=== PATIENT | female | born 1980 | race African-American/Black ===

== ENCOUNTER → 2016-12-16 | Outpatient (CLI) | payer MEDICAID, BC ==
[~2016-12-16] MED LIST: FER325T PO; LISI2.5T47 PO; PRED-188 PO; Pantoprazole Sodium Sesquihydr PO
[2016-12-16 12:54] LABS: Basophils # (auto) 0 uL; Basophils % (auto) 0.5 % (0.0-2.0); DEFINITIVE VIEW TRANSMISSION; Eosinophils # (auto) 0 uL; Eosinophils % (auto) 0.1 % (0.0-7.0); Hematocrit 33.5 % (36.0-46.0); Hemoglobin 10.5 g/dL (12.2-16.2); Lymphocytes # (auto) 1.3 uL; Lymphocytes % (auto) 28.6 % (10.0-50.0); Mean Corpuscular Hgb Conc. 31.3 g/dL (32.0-36.0); Monocytes # (auto) 0.4 uL; Monocytes % (auto) 7.8 % (0.0-12.0); Neutrophils # (auto) 2.9 uL; Platelet Count (auto) 483 10^3/uL (140-450); White Blood Cell 4.6 10^3/uL (4.4-10.8)
[2016-12-16 13:22] LABS: Albumin 3.7 g/dL (3.4-5.0); BUN/Creatinine Ratio 11.6; Bilirubin, Total 0.4 mg/dL (0.2-1.0); Potassium 3.1 mmol/L (3.5-5.1); Total Protein 8.8 g/dL (6.4-8.2)
== END | disposition home or self-care (01) ==
LOC: LAB 11:53
DX: M06.9 Rheumatoid arthritis, unspecified (principal); D64.9 Anemia, unspecified; M25.50 Pain in unspecified joint; I10 Essential (primary) hypertension; Z79.899 Other long term (current) drug therapy
CPT/HCPCS: 36415; 80053; 85025; 85049; 85652; 86141

== ENCOUNTER 2018-10-03 12:47 | Inpatient (IN) | payer BC, MEDICAID ==
[~2018-10-03] VITALS: Ht 177.8 cm; Wt 71.6 kg
[2018-10-03] MEDS ORDERED: ACETAMINOPHEN 325 MG TAB PO ONE (13:15)
[2018-10-03 14:00] LABS: Urine Bacteria FEW /hpf (None Seen); Urine Blood 1+ /uL (Negative); Urine Mucus FEW (None Seen); Urine Specific Gravity 1.023 (1.001-1.035); Urine WBC 20 /hpf (0 - 5)
[2018-10-03 14:24] LABS: Hematocrit 31.2 % (36.0-46.0)
[2018-10-03 14:27] LABS: Hemoglobin 9.3 g/dL (12.2-16.2); Mean Corpuscular Hemoglobin 22.5 pg (28.0-32.0); Mean Corpuscular Hgb Conc. 29.9 g/dL (32.0-36.0); Mean Corpuscular Volume 75.4 fL (80.0-100.0); Platelet Count (auto) 280 10^3/uL (140-450); Red Blood Cells 4.14 10^6/uL (4.0-5.20); Red Cell Distribution Width 19.9 % (11.8-14.3); White Blood Cell 6.5 10^3/uL (4.4-10.8)
[2018-10-03 14:34] LABS: Band Neutrophils % (manual) 0; Basophils % (manual) 0 (0.0-2.0); Blast Cells 0; Eosinophils % (manual) 0 (0-7); Metamyelocytes % 0; Myelocytes % 0; Promyelocytes % 0; Reactive Lymphocytes 0
[2018-10-03 14:38] LABS: Calcium 7.8 mg/dL (8.5-10.1)
[2018-10-03 14:42] LABS: BUN/Creatinine Ratio 5.8; Bilirubin, Total 0.6 mg/dL (0.2-1.0); Total Protein 7.4 g/dL (6.4-8.2)
[2018-10-03 14:56] LABS: Potassium 2.6 mmol/L (3.5-5.1)
[2018-10-03 15:44] LABS: Lymphocytes % (manual) 50 (10.0-50.0); Monocytes % (manual) 4 (0-12)
[2018-10-03] MEDS ORDERED: SODIUM CHLORIDE 0.9% 1,000 ML IV ONE (16:09)
[2018-10-03] MEDS ORDERED: POTASSIUM CHL 20 Meq TABLET PO ONE (16:15)
[2018-10-03] MEDS ORDERED: POTASSIUM CHL 20MEQ/100ML 100 ML IV ONE (16:15)
[2018-10-03] MEDS ORDERED: cefTRIAXone 1GM/50ML D5W 50 ML IV ONE (16:30)
[2018-10-03] MEDS ORDERED: HYDROcodone-ACET 5/325MG TAB PO PRN (17:15)
[2018-10-03] MEDS ORDERED: NITROGLYCERIN 0.4 MG SL TAB SL PRN (17:15)
[2018-10-03] MEDS ORDERED: DOCUSATE SOD 100 MG CAP PO PRN (17:15)
[2018-10-03] MEDS ORDERED: MORPHINE SULFATE 4 MG/ML SYR/VIAL IV PRN ×2 (17:15)
[2018-10-03] MEDS ORDERED: ACETAMINOPHEN 325 MG TAB PO PRN (17:15)
[2018-10-03] MEDS ORDERED: TEMAZEPAM 15 MG CAP PO PRN (17:15)
[2018-10-03] MEDS: Ensure Enlive Strawberry 8oz Bottle PO SCH (18:00)
[2018-10-03] MEDS ORDERED: METH2.5T3 PO (18:46)
[2018-10-03 18:48] VITALS: BP 102/72
[2018-10-03 21:37] VITALS: BP 119/74
[2018-10-03] MEDS: SODIUM CHLOR 0.9% PF (SALINE LOCK) 10ML VIAL/SYR IV SCH (22:00)
[2018-10-03 23:09] LABS: BUN/Creatinine Ratio 7.1; Potassium 3.1 mmol/L (3.5-5.1)
[2018-10-03] MEDS: FAMOTIDINE 20 MG TAB PO SCH (23:25)
[2018-10-04 04:56] VITALS: BP 118/72
[2018-10-04 05:55] LABS: Hemoglobin 8.4 g/dL (12.2-16.2); White Blood Cell 5.8 10^3/uL (4.4-10.8)
[2018-10-04 05:57] LABS: Hematocrit 27.5 % (36.0-46.0); Mean Corpuscular Hgb Conc. 30.5 g/dL (32.0-36.0); Mean Corpuscular Volume 75.4 fL (80.0-100.0); Platelet Count (auto) 292 10^3/uL (140-450); Red Blood Cells 3.64 10^6/uL (4.0-5.20)
[2018-10-04] MEDS: SODIUM CHLOR 0.9% PF (SALINE LOCK) 10ML VIAL/SYR IV SCH ×3 (06:00→22:00)
[2018-10-04 06:04] LABS: Potassium 3.1 mmol/L (3.5-5.1)
[2018-10-04 06:10] LABS: Albumin 2.6 g/dL (3.4-5.0); BUN/Creatinine Ratio 4.8; Calcium 7.3 mg/dL (8.5-10.1)
[2018-10-04 06:12] LABS: Bilirubin, Total 0.4 mg/dL (0.2-1.0); Total Protein 6.3 g/dL (6.4-8.2)
[2018-10-04 06:23] LABS: Red Cell Distribution Width 20.8 % (11.8-14.3)
[2018-10-04 06:25] LABS: Basophils % (manual) 0 (0.0-2.0); Blast Cells 0; Eosinophils % (manual) 0 (0-7); Metamyelocytes % 0; Myelocytes % 0; Promyelocytes % 0
[2018-10-04 08:47] VITALS: BP 113/73
[2018-10-04] MEDS: Ensure Enlive Strawberry 8oz Bottle PO SCH ×3 (09:05→18:22)
[2018-10-04 09:25] LABS: Band Neutrophils % (manual) 1; Lymphocytes % (manual) 42 (10.0-50.0); Monocytes % (manual) 8 (0-12); Reactive Lymphocytes 3
[2018-10-04] MEDS: cefTRIAXone 1GM/50ML D5W 50 ML IV SCH (10:41)
[2018-10-04] MEDS: MULTIPLE VITAMIN TAB PO SCH (10:42)
[2018-10-04] MEDS: FAMOTIDINE 20 MG TAB PO SCH ×2 (10:42→22:00)
[2018-10-04] MEDS ORDERED: THROAT LOZENGES(CEPASTAT) MT PRN (13:00)
[2018-10-04] MEDS ORDERED: POTASSIUM EFFERVESENT TAB 25 MEQ PO ONE (13:00)
[2018-10-04 13:10] VITALS: BP 118/76
[2018-10-04] MEDS: ACETAMINOPHEN 325 MG TAB PO PRN ×2 (14:34→22:03)
[2018-10-04 16:47] VITALS: BP 116/73
[2018-10-04 21:52] VITALS: BP 120/76
[2018-10-05 05:00] VITALS: BP 113/70
[2018-10-05] MEDS: SODIUM CHLOR 0.9% PF (SALINE LOCK) 10ML VIAL/SYR IV SCH ×3 (06:10→21:43)
[2018-10-05 06:32] LABS: Eosinophils # (auto) 0 uL
[2018-10-05 06:35] LABS: Basophils # (auto) 0.1 uL; Basophils % (auto) 1.2 % (0.0-2.0); Eosinophils % (auto) 0.1 % (0.0-7.0); Hematocrit 29.9 % (36.0-46.0); Lymphocytes # (auto) 2.6 uL; Mean Corpuscular Hemoglobin 22.9 pg (28.0-32.0); Mean Corpuscular Hgb Conc. 30.1 g/dL (32.0-36.0); Mean Corpuscular Volume 76.1 fL (80.0-100.0); Monocytes # (auto) 0.5 uL; Monocytes % (auto) 8.5 % (0.0-12.0); Neutrophils # (auto) 2.6 uL; Neutrophils % (auto) 44.4 % (37.0-80.0); Platelet Count (auto) 340 10^3/uL (140-450); Red Blood Cells 3.93 10^6/uL (4.0-5.20); White Blood Cell 5.8 10^3/uL (4.4-10.8)
[2018-10-05 06:36] LABS: Red Cell Distribution Width 21.1 % (11.8-14.3)
[2018-10-05 06:51] LABS: Potassium 3.4 mmol/L (3.5-5.1)
[2018-10-05 06:55] LABS: BUN/Creatinine Ratio 6.8; Calcium 7.9 mg/dL (8.5-10.1)
[2018-10-05 08:00] VITALS: BP 127/77
[2018-10-05 08:05] LABS: Lymphocytes % (auto) 45.8 % (10.0-50.0); Nucleated Red Blood Cells % 0.3 %
[2018-10-05 09:00] VITALS: BP 127/77
[2018-10-05] MEDS: Ensure Enlive Strawberry 8oz Bottle PO SCH ×3 (09:46→18:16)
[2018-10-05] MEDS: cefTRIAXone 1GM/50ML D5W 50 ML IV SCH (09:46)
[2018-10-05] MEDS: FAMOTIDINE 20 MG TAB PO SCH ×2 (09:47→21:42)
[2018-10-05] MEDS: MULTIPLE VITAMIN TAB PO SCH (09:47)
[2018-10-05 13:00] VITALS: BP 119/77
[2018-10-05] MEDS ORDERED: POTASSIUM EFFERVESENT TAB 25 MEQ PO ONE (13:45)
[2018-10-05] MEDS ORDERED: PANTOPRAZOLE 40 MG TAB PO ONE (14:00)
[2018-10-05] MEDS: metroNIDAZOLE 500MG/100ML 100 ML IV SCH ×2 (14:37→21:43)
[2018-10-05] MEDS: SUCRALFATE 1 GM TAB PO SCH ×2 (14:37→21:43)
[2018-10-05 17:00] VITALS: BP 106/68
[2018-10-05] MEDS: ONDANSETRON HCL 4 MG/2 ML VIAL IV PRN (17:28)
[2018-10-05] MEDS: ACETAMINOPHEN 325 MG TAB PO PRN (17:29)
[2018-10-05 21:59] VITALS: BP 98/65
[2018-10-06] MEDS: ACETAMINOPHEN 325 MG TAB PO PRN ×3 (04:19→16:45)
[2018-10-06 04:56] VITALS: BP 107/72
[2018-10-06 05:16] LABS: Basophils # (auto) 0 uL; Basophils % (auto) 0.5 % (0.0-2.0); Eosinophils # (auto) 0 uL; Eosinophils % (auto) 0.1 % (0.0-7.0); Hemoglobin 8.5 g/dL (12.2-16.2)
[2018-10-06 05:20] LABS: Hematocrit 27.9 % (36.0-46.0); Lymphocytes # (auto) 4.1 uL; Mean Corpuscular Hemoglobin 23.1 pg (28.0-32.0); Mean Corpuscular Hgb Conc. 30.5 g/dL (32.0-36.0); Mean Corpuscular Volume 75.7 fL (80.0-100.0); Monocytes # (auto) 0.7 uL; Monocytes % (auto) 9.3 % (0.0-12.0); Neutrophils # (auto) 2.3 uL; Neutrophils % (auto) 32.6 % (37.0-80.0); Nucleated Red Blood Cells % 0.3 %; Platelet Count (auto) 323 10^3/uL (140-450); Red Blood Cells 3.68 10^6/uL (4.0-5.20); White Blood Cell 7.1 10^3/uL (4.4-10.8)
[2018-10-06 05:29] LABS: Lymphocytes % (auto) 57.5 % (10.0-50.0); Red Cell Distribution Width 21.4 % (11.8-14.3)
[2018-10-06 05:30] LABS: Potassium 3.4 mmol/L (3.5-5.1)
[2018-10-06 05:34] LABS: BUN/Creatinine Ratio 7.6; Calcium 7.5 mg/dL (8.5-10.1)
[2018-10-06] MEDS: metroNIDAZOLE 500MG/100ML 100 ML IV SCH ×2 (06:12→14:11)
[2018-10-06] MEDS: SUCRALFATE 1 GM TAB PO SCH ×4 (06:12→21:30)
[2018-10-06] MEDS: SODIUM CHLOR 0.9% PF (SALINE LOCK) 10ML VIAL/SYR IV SCH ×3 (06:12→21:31)
[2018-10-06] MEDS: Ensure Enlive Strawberry 8oz Bottle PO SCH ×3 (07:27→18:25)
[2018-10-06 08:00] VITALS: BP 97/57
[2018-10-06] MEDS: cefTRIAXone 1GM/50ML D5W 50 ML IV SCH (09:12)
[2018-10-06] MEDS ORDERED: PANTOPRAZOLE 40 MG TAB PO SCH (10:00)
[2018-10-06] MEDS: MULTIPLE VITAMIN TAB PO SCH (10:26)
[2018-10-06] MEDS: FAMOTIDINE 20 MG TAB PO SCH (10:27)
[2018-10-06] MEDS ORDERED: POTASSIUM EFFERVESENT TAB 25 MEQ PO ONE (11:45)
[2018-10-06 12:00] VITALS: BP 103/63
[2018-10-06] MEDS ORDERED: ACETAMINOPHEN 325 MG TAB PO PRN (12:15)
[2018-10-06 16:53] VITALS: BP 108/66
[2018-10-06] MEDS ORDERED: VANCOMYCIN PER PHARMACY 0 MG IV SCH (18:15)
[2018-10-06] MEDS: VANCOMYCIN 1GM/250ML 250 ML IV SCH (20:45)
[2018-10-06] MEDS: PANTOPRAZOLE 40 MG TAB PO SCH (21:30)
[2018-10-06 22:09] VITALS: BP 97/59
[2018-10-07] MEDS: ACETAMINOPHEN 325 MG TAB PO PRN ×3 (04:12→17:16)
[2018-10-07 04:36] VITALS: BP 117/68
[2018-10-07 05:53] LABS: Mean Corpuscular Volume 75.4 fL (80.0-100.0); White Blood Cell 7.9 10^3/uL (4.4-10.8)
[2018-10-07 05:55] LABS: Hematocrit 27.3 % (36.0-46.0); Hemoglobin 8.4 g/dL (12.2-16.2); Mean Corpuscular Hemoglobin 23.3 pg (28.0-32.0); Platelet Count (auto) 310 10^3/uL (140-450); Red Blood Cells 3.62 10^6/uL (4.0-5.20)
[2018-10-07 05:59] LABS: Red Cell Distribution Width 20.8 % (11.8-14.3)
[2018-10-07 06:00] LABS: Basophils % (manual) 0 (0.0-2.0); Blast Cells 0; Eosinophils % (manual) 0 (0-7); Myelocytes % 0; Promyelocytes % 0; Reactive Lymphocytes 0
[2018-10-07 06:12] LABS: Albumin 2.4 g/dL (3.4-5.0); Calcium 7.5 mg/dL (8.5-10.1); Potassium 3.3 mmol/L (3.5-5.1)
[2018-10-07] MEDS: SODIUM CHLOR 0.9% PF (SALINE LOCK) 10ML VIAL/SYR IV SCH (06:13)
[2018-10-07] MEDS: SUCRALFATE 1 GM TAB PO SCH ×4 (06:13→21:27)
[2018-10-07 06:15] LABS: BUN/Creatinine Ratio 9.2; Bilirubin, Total 0.5 mg/dL (0.2-1.0); Total Protein 6.1 g/dL (6.4-8.2)
[2018-10-07 06:45] LABS: Band Neutrophils % (manual) 1; Lymphocytes % (manual) 32 (10.0-50.0); Metamyelocytes % 1; Monocytes % (manual) 12 (0-12)
[2018-10-07 07:41] VITALS: BP 106/68
[2018-10-07] MEDS: Ensure Enlive Strawberry 8oz Bottle PO SCH ×3 (08:00→16:29)
[2018-10-07] MEDS: cefTRIAXone 1GM/50ML D5W 50 ML IV SCH (09:02)
[2018-10-07] MEDS: ONDANSETRON HCL 4 MG/2 ML VIAL IV PRN ×2 (09:02→14:25)
[2018-10-07] MEDS: VANCOMYCIN 1GM/250ML 250 ML IV SCH ×2 (09:02→19:49)
[2018-10-07] MEDS ORDERED: LACTULOSE 20Gm/30ML SOLN PO PRN (10:30)
[2018-10-07] MEDS ORDERED: SODIUM CHLORIDE 0.9% 1,000 ML IV SCH (10:30)
[2018-10-07 11:38] VITALS: BP 113/74
[2018-10-07 12:05] LABS: Hepatitis A Ab IgM Negative; Hepatitis B Core IgM Negative; Hepatitis B Surface Antigen Negative (Negative); Hepatitis C Antibody Negative (Negative)
[2018-10-07] MEDS: PANTOPRAZOLE 40 MG TAB PO SCH ×2 (12:08→21:27)
[2018-10-07] MEDS: MULTIPLE VITAMIN TAB PO SCH (12:08)
[2018-10-07] MEDS: SOD CHL 0.9%/ KCL 20MEQ 1,000 ML IV SCH ×2 (14:26→22:45)
[2018-10-07 17:14] VITALS: BP 105/69
[2018-10-07 21:59] VITALS: BP 115/69
[2018-10-08] MEDS: ACETAMINOPHEN 325 MG TAB PO PRN ×2 (02:00→13:18)
[2018-10-08] MEDS: SOD CHL 0.9%/ KCL 20MEQ 1,000 ML IV SCH ×3 (02:07→18:45)
[2018-10-08 04:37] VITALS: BP 106/65
[2018-10-08] MEDS: SUCRALFATE 1 GM TAB PO SCH ×4 (06:29→23:14)
[2018-10-08 07:27] LABS: Albumin 2.3 g/dL (3.4-5.0); Calcium 7.5 mg/dL (8.5-10.1); Potassium 3.4 mmol/L (3.5-5.1)
[2018-10-08 07:30] LABS: BUN/Creatinine Ratio 7.1; Bilirubin, Total 0.5 mg/dL (0.2-1.0); Total Protein 6.1 g/dL (6.4-8.2)
[2018-10-08 07:34] LABS: Hemoglobin 8.6 g/dL (12.2-16.2)
[2018-10-08 07:36] LABS: Hematocrit 28.5 % (36.0-46.0); Mean Corpuscular Hemoglobin 22.8 pg (28.0-32.0); Mean Corpuscular Hgb Conc. 30.1 g/dL (32.0-36.0); Mean Corpuscular Volume 75.8 fL (80.0-100.0); Platelet Count (auto) 322 10^3/uL (140-450); Red Blood Cells 3.76 10^6/uL (4.0-5.20); White Blood Cell 6.8 10^3/uL (4.4-10.8)
[2018-10-08 07:38] LABS: Red Cell Distribution Width 21.3 % (11.8-14.3)
[2018-10-08 07:40] LABS: Basophils % (manual) 0 (0.0-2.0); Blast Cells 0; Eosinophils % (manual) 0 (0-7); Metamyelocytes % 0; Promyelocytes % 0
[2018-10-08] MEDS: Ensure Enlive Strawberry 8oz Bottle PO SCH ×3 (08:00→18:36)
[2018-10-08] MEDS: VANCOMYCIN 1GM/250ML 250 ML IV SCH (08:19)
[2018-10-08 09:00] VITALS: BP 122/74
[2018-10-08] MEDS: MULTIPLE VITAMIN TAB PO SCH (11:20)
[2018-10-08] MEDS: cefTRIAXone 1GM/50ML D5W 50 ML IV SCH (11:20)
[2018-10-08] MEDS: PANTOPRAZOLE 40 MG TAB PO SCH ×2 (11:21→23:14)
[2018-10-08 13:00] VITALS: BP 120/76
[2018-10-08] MEDS ORDERED: POTASSIUM CHL 20 Meq TABLET PO ONE (13:00)
[2018-10-08 13:31] LABS: Band Neutrophils % (manual) 1; Lymphocytes % (manual) 34 (10.0-50.0); Monocytes % (manual) 9 (0-12); Myelocytes % 2; Reactive Lymphocytes 6
[2018-10-08] MEDS: ONDANSETRON HCL 4 MG/2 ML VIAL IV PRN (16:37)
[2018-10-08 17:00] VITALS: BP 107/68
[2018-10-08] MEDS: VANCOMYCIN 1,250 MG in D5W 5% 250 ML IV SCH (18:33)
[2018-10-08 22:00] VITALS: BP 113/71
[2018-10-09] MEDS: SOD CHL 0.9%/ KCL 20MEQ 1,000 ML IV SCH ×2 (04:55→15:02)
[2018-10-09 05:00] VITALS: BP 109/69
[2018-10-09] MEDS: ACETAMINOPHEN 325 MG TAB PO PRN ×2 (05:34→21:20)
[2018-10-09] MEDS: VANCOMYCIN 1,250 MG in D5W 5% 250 ML IV SCH ×2 (05:35→17:51)
[2018-10-09 06:01] LABS: Potassium 3.7 mmol/L (3.5-5.1)
[2018-10-09 06:09] LABS: Albumin 2.1 g/dL (3.4-5.0); BUN/Creatinine Ratio 5.4; Calcium 7.2 mg/dL (8.5-10.1)
[2018-10-09 06:11] LABS: Bilirubin, Total 0.6 mg/dL (0.2-1.0); Total Protein 5.8 g/dL (6.4-8.2)
[2018-10-09] MEDS: SUCRALFATE 1 GM TAB PO SCH ×4 (06:54→21:19)
[2018-10-09] MEDS: Ensure Enlive Strawberry 8oz Bottle PO SCH ×3 (08:00→17:51)
[2018-10-09 09:00] VITALS: BP 108/68
[2018-10-09] MEDS: cefTRIAXone 1GM/50ML D5W 50 ML IV SCH (10:43)
[2018-10-09] MEDS: MULTIPLE VITAMIN TAB PO SCH (10:44)
[2018-10-09] MEDS: PANTOPRAZOLE 40 MG TAB PO SCH ×2 (10:44→21:19)
[2018-10-09] MEDS: HYDROcodone-ACET 5/325MG TAB PO PRN ×2 (10:45→15:02)
[2018-10-09 13:00] VITALS: BP 100/62
[2018-10-09 17:00] VITALS: BP 128/80
[2018-10-09 22:00] VITALS: BP 118/74
[2018-10-10] MEDS: SOD CHL 0.9%/ KCL 20MEQ 1,000 ML IV SCH ×3 (01:50→17:33)
[2018-10-10 05:00] VITALS: BP 122/80
[2018-10-10] MEDS: VANCOMYCIN 1,250 MG in D5W 5% 250 ML IV SCH (05:54)
[2018-10-10 06:42] LABS: Hemoglobin 8.1 g/dL (12.2-16.2)
[2018-10-10 06:45] LABS: Hematocrit 26.5 % (36.0-46.0); Mean Corpuscular Hemoglobin 23.9 pg (28.0-32.0); Mean Corpuscular Hgb Conc. 30.4 g/dL (32.0-36.0); Mean Corpuscular Volume 78.5 fL (80.0-100.0); Platelet Count (auto) 285 10^3/uL (140-450); Red Blood Cells 3.38 10^6/uL (4.0-5.20); White Blood Cell 5.9 10^3/uL (4.4-10.8)
[2018-10-10] MEDS: SUCRALFATE 1 GM TAB PO SCH ×4 (06:50→21:28)
[2018-10-10 06:52] LABS: Albumin 2.1 g/dL (3.4-5.0); Calcium 7.3 mg/dL (8.5-10.1); Potassium 3.7 mmol/L (3.5-5.1)
[2018-10-10 06:56] LABS: BUN/Creatinine Ratio 7.7; Bilirubin, Total 0.5 mg/dL (0.2-1.0); Total Protein 5.8 g/dL (6.4-8.2)
[2018-10-10 06:59] LABS: Red Cell Distribution Width 21.7 % (11.8-14.3)
[2018-10-10 07:00] LABS: Blast Cells 0; Eosinophils % (manual) 0 (0-7); Metamyelocytes % 0; Myelocytes % 0; Promyelocytes % 0
[2018-10-10] MEDS: Ensure Enlive Strawberry 8oz Bottle PO SCH ×3 (08:00→17:33)
[2018-10-10 08:35] VITALS: BP 123/81
[2018-10-10] MEDS: cefTRIAXone 1GM/50ML D5W 50 ML IV SCH (08:40)
[2018-10-10 08:59] LABS: Band Neutrophils % (manual) 2; Basophils % (manual) 1 (0.0-2.0); Lymphocytes % (manual) 47 (10.0-50.0); Monocytes % (manual) 9 (0-12); Reactive Lymphocytes 1
[2018-10-10] MEDS: PANTOPRAZOLE 40 MG TAB PO SCH ×2 (11:15→21:28)
[2018-10-10] MEDS: MULTIPLE VITAMIN TAB PO SCH (11:15)
[2018-10-10] MEDS: VANCOMYCIN 1GM/250ML 250 ML IV SCH ×2 (12:55→21:46)
[2018-10-10 13:00] VITALS: BP 122/81
[2018-10-10] MEDS: HYDROcodone-ACET 5/325MG TAB PO PRN (16:07)
[2018-10-10 17:00] VITALS: BP 115/65
[2018-10-10] MEDS: Pro-Stat SF 30ml Vanilla PO SCH (17:33)
[2018-10-10 21:41] VITALS: BP 98/59
[2018-10-11] MEDS: ACETAMINOPHEN 325 MG TAB PO PRN ×2 (04:35→20:20)
[2018-10-11 05:00] VITALS: BP 121/77
[2018-10-11 05:32] LABS: Hematocrit 25.9 % (36.0-46.0); Hemoglobin 7.8 g/dL (12.2-16.2); Mean Corpuscular Hgb Conc. 29.9 g/dL (32.0-36.0); Mean Corpuscular Volume 76.8 fL (80.0-100.0); Platelet Count (auto) 294 10^3/uL (140-450); Red Blood Cells 3.37 10^6/uL (4.0-5.20); White Blood Cell 7.6 10^3/uL (4.4-10.8)
[2018-10-11 05:33] LABS: Red Cell Distribution Width 22.1 % (11.8-14.3)
[2018-10-11 05:34] LABS: Basophils % (manual) 0 (0.0-2.0); Blast Cells 0; Metamyelocytes % 0; Promyelocytes % 0
[2018-10-11] MEDS: SUCRALFATE 1 GM TAB PO SCH ×3 (06:01→17:00)
[2018-10-11] MEDS: VANCOMYCIN 1GM/250ML 250 ML IV SCH ×2 (06:01→13:49)
[2018-10-11 08:00] VITALS: BP 102/73
[2018-10-11 08:56] LABS: Band Neutrophils % (manual) 6; Eosinophils % (manual) 1 (0-7); Lymphocytes % (manual) 39 (10.0-50.0); Monocytes % (manual) 2 (0-12); Myelocytes % 1; Reactive Lymphocytes 6
[2018-10-11 09:00] VITALS: BP_SYST 102; BP_SYST 105; BP_DIAS 67; BP_DIAS 73
[2018-10-11] MEDS: cefTRIAXone 1GM/50ML D5W 50 ML IV SCH (09:34)
[2018-10-11] MEDS: Ensure Enlive Strawberry 8oz Bottle PO SCH ×3 (09:34→18:00)
[2018-10-11] MEDS: Pro-Stat SF 30ml Vanilla PO SCH ×2 (09:34→18:00)
[2018-10-11] MEDS: PANTOPRAZOLE 40 MG TAB PO SCH (09:35)
[2018-10-11] MEDS: MULTIPLE VITAMIN TAB PO SCH (09:35)
[2018-10-11 13:25] VITALS: BP 115/74
[2018-10-11 17:22] VITALS: BP_SYST 103; BP_SYST 105; BP_DIAS 50; BP_DIAS 72
[2018-10-11 19:23] VITALS: BP 102/75
== END 2018-10-11 20:55 | disposition home or self-care (01) | DRG 871 ==
LOC: ER 12:47 → WEST WING 17:57 → TELE-WESTW 10-04 19:58
PROVIDERS: ADMIT Internal Medicine; ATTEND Internal Medicine
DX: A41.9 Sepsis, unspecified organism (principal); N17.0 Acute kidney failure with tubular necrosis; E44.0 Moderate protein-calorie malnutrition; N39.0 Urinary tract infection, site not specified; B96.1 Klebsiella pneumoniae [K. pneumoniae] as the cause of diseases classified elsewhere; D50.9 Iron deficiency anemia, unspecified; E83.51 Hypocalcemia; E87.6 Hypokalemia; K59.00 Constipation, unspecified; M32.9 Systemic lupus erythematosus, unspecified; N18.2 Chronic kidney disease, stage 2 (mild); J00 Acute nasopharyngitis [common cold]; M19.90 Unspecified osteoarthritis, unspecified site; K80.20 Calculus of gallbladder without cholecystitis without obstruction; Z68.22 Body mass index [BMI] 22.0-22.9, adult
CPT/HCPCS: 36415; 70450; 70480; 70486; 71046; 74176; 76705; 80048; 80053; 80074; 80202; 81001; 81025; 83540; 83735; 85007; 85025; 85027; 87040; 87086; 87088; 87186; 87804; 94761; 96361; 96365; 96367; G0378; J0696; J2405; J3480; J3490; J7060